=== PATIENT | male | born 1970 | race Caucasian/White ===

== ENCOUNTER → 2017-10-21 | Day surgery (SDC) | payer OTHER ==
[2017-10-11 11:11] VITALS: BMI 42.0
[~2017-10-21] VITALS: Ht 188 cm; Wt 146.4 kg
[~2017-10-21] MED LIST: ALOG1TAB5 PO; AMLO10TA3 PO; ASPI-435 PO; ATEN25TA PO; ATOR-24 PO; FLUT0.15 NAE; GABA-112 PO; GLIP-199 PO; LISI40TA PO; METF1000 PO; PRLSR20 PO; SODIUM CHLORIDE 0.9% 500ML 500 ML IV ONE; TRAM-10 PO
[2017-10-21 12:25] VITALS: TEMP 36.9
[2017-10-21 12:32] VITALS: Ht 188 cm; Wt 146.4 kg
--- NOTE | 2017-10-21 12:33 | Endo History and Physical ---
History & Physical Date of Service: Oct 21, 2017. Chief Complaint: Colonoscopy Referring Physician: Pieter Carrasquillo History of Present Illness History of tubulovillous adenoma 2013, here for colonoscopy. Past Medical History Diabetes, Arthritis, High Cholesterol, Heart Disease, Hypertension Past Surgical History Hx Cardiac Surgery: No Hx Internal Defibrillator: No Hx Pacemaker: No Hx Abdominal Surgery: No Hx of Implantable Prosthesis: No Hx Post-Op Nausea and Vomiting: No Hx Cancer Surgery: No Hx Thoracic Surgery: No Hx Orthopedic: Yes (RT FOOT/ANKLE SURGERY X2) Hx Urinary Tract Surgery: No Family History IBD Social History Smoking Status: Never Smoker Hx Substance Use: No Hx Alcohol Use: No Allergies Coded Allergies: No Known Allergies (Verified , 10/21/17) Current Medications Reported Home Medications Medications Dose Route/Sig Max Daily Dose Days Date Category Neurontin (Gabapentin) 100 Mg Cap 100 Mg PO TID PRN 10/11/17 Reported Ultram (Tramadol HCl) 50 Mg Tab 50 Mg PO Q4H PRN 10/11/17 Reported Flonase Allergy Relief (Fluticasone Propionate (Nasal)) 50 Mcg/Act Spr 2 Sprays JOAQUIM DAILY PRN 10/11/17 Reported Lipitor (Atorvastatin Calcium) 40 Mg Tab 40 Mg PO QPM 10/11/17 Reported Nesina (Alogliptin Benzoate) 25 Mg Tab 1 Tab PO QAM 10/11/17 Reported Tenormin (Atenolol) 25 Mg Tab 25 Mg PO QID 10/11/17 Reported Glucophage (Metformin Hcl) 1,000 Mg Tab 1,000 Mg PO BID 10/11/17 Reported Glipizide Er (Glipizide) 10 Mg Tab 1 Tab PO QAM 10/11/17 Reported Prilosec (Omeprazole) 20 Mg Capcr 20 Mg PO DAILY PRN 11/13/13 Reported Norvasc (Amlodipine Besylate) 10 Mg Tab 10 Mg PO QAM 11/13/13 Reported Aspirin 81 (Aspirin) 81 Mg Tab 81 Mg PO QAM 10/05/13 Reported Zestril (Lisinopril) 40 Mg Tab 40 Mg PO QPM 10/05/13 Reported Vital Signs Weight (Kilograms): 146.36 Height (Feet): 6 Height (Inches): 1.5 Physical Exam General Appearance: WD/WN, no apparent distress, + obese Respiratory/Chest: Auscultation: breath sounds normal, no wheezing Cardiovascular: Heart Auscultation: RRR, no murmurs Abdomen: Inspection & Palpation: soft, no tenderness, guarding & rebound Assessment and Plan Colonoscopy today.
--- NOTE | 2017-10-21 13:12 | Discharge Instructions ---
Endoscopy Patient Instructions Date / Procedure(s) Performed Oct 21, 2017. Colonoscopy Allergy Information Coded Allergies: No Known Allergies (Verified , 10/21/17) Discharge Date / Findings Oct 21, 2017. Diverticulosis Medication Instructions Stopped Medication(s): ASPIRIN 10/17/17 METFORMIN LAST 10/19/17 Restart Stopped Medication(s): Restart all medications today. Provider Instructions Activity Restrictions - No exercising or heavy lifting for 24 hours. - Do not drink alcohol the day of the procedure. - Do not drive a car or operate machinery until the day after the procedure. - Do not make any important decisions or sign important papers in 24 hours after the procedure. Following Day: - Return to full activity which may include returning to work/school. Diet Start your diet with liquids and light foods (jello, soup, juice, toast). Then eat your usual diet if not nauseated. Treatment For Common After Affects For mild abdominal pain, bloating, or excessive gas: - Rest - Eat lightly - Lie on right side Follow-Up Information Follow-up with ROSIE WILCOX as scheduled Anesthesia Information What You Should Know You have had a procedure that required some medicine to reduce anxiety and discomfort. This treatment is called moderate sedation. After receiving the treatment, you may be sleepy, but you will be able to breathe on your own. The effects of the treatment may last for several hours. Follow these instructions along with Activity/Diet recommendations noted above: * Do NOT do anything where dizziness or clumsiness would be dangerous. * Rest quietly at home today, then you can be up and about tomorrow. * Have a responsible person stay with you the rest of today. * You may have had an I.V. today. If so, you may take the dressing off later today. Recommendations Call your doctor if: * Trouble breathing * Continuous vomiting for more than 24 hours * Temperature above 101 degrees * Severe abdominal pain or bloating * Pain not relieved by pain medicine ordered * There is increased drainage or redness from any incision * A large amount of rectal bleeding greater than 2-3 tablespoons. (If you had a polyp/s removed or have hemorrhoids, a small amount of blood - from the rectum is to be expected.) * You have any unanswered questions or concerns. IN THE EVENT OF A SERIOUS EMERGENCY, GO TO THE NEAREST EMERGENCY ROOM Your discharge instructions were prepared by provider Marcos Rosales. Patient Instructions Signature Page Eleazar Peralta Patient (or Guardian) Signature/Date: I have read and understand the instructions given to me by my caregivers. Caregiver/RN/Doctor Signature/Date: The above-named patient and/or guardian has received patient instructions on this date. + Original Patient Signature Page (only) stays with chart. Please make copy for patient.
--- NOTE | 2017-10-21 13:21 | GI REPORT ---
Procedure Date: 10/21/2017 12:43 PM Procedure: Colonoscopy Indications: High risk colon cancer surveillance: Personal history of large rectal adenoma with villous component, 06/2014 Medicines: Monitored Anesthesia Care Complications: No immediate complications. Estimated blood loss: None. Estimated Blood Loss: Estimated blood loss: none. Procedure: Pre-Anesthesia Assessment: - Prior to the procedure, a History and Physical was performed, and patient medications, allergies and sensitivities were reviewed. The patient's tolerance of previous anesthesia was reviewed. - ASA Grade Assessment: III - A patient with severe systemic disease. After I obtained informed consent, the scope was passed under direct vision. Throughout the procedure, the patient's blood pressure, pulse, and oxygen saturations were monitored continuously. The scope was introduced through the anus and advanced to the terminal ileum, with identification of the appendiceal orifice and IC valve. The colonoscopy was performed with ease. The patient tolerated the procedure well. The quality of the bowel preparation was good. The bowel preparation used was split dose MIralax. Findings: Multiple medium-mouthed diverticula were found in the left colon. Impression: - Diverticulosis in the left colon. - No specimens collected. - The colon was otherwise normal to the terminal ileum with retroflexed views of the colon and terminal ileum. Recommendation: - Repeat colonoscopy in 3 years for screening purposes. - Discharge patient to home (with escort). Marcos Rosales M.D. Marcos Rosales MD 10/21/2017 1:21:15 PM This report has been signed electronically. Note Initiated On: 10/21/2017 12:43 PM I attest to the content of the Intraoperative Record and orders documented therein, exceptions below
--- NOTE | 2017-10-21 13:26 | Anesthesiology Progress Note ---
Anesthesia Post Op Note Date & Time Oct 21, 2017 at 13:26 Vital Signs Pain Intensity: 0 Vital Signs Past 12 Hours Date Time Temp Pulse Resp B/P (MAP) Pulse Ox O2 Delivery O2 Flow Rate FiO2 10/21/17 13:14 107 18 108/57 (74) 93 Room Air 10/21/17 12:35 114 142/91 (108) 10/21/17 12:27 114 10/21/17 12:25 36.9 122 20 179/99 (125) 95 Room Air Notes Mental Status: alert / awake / arousable, participated in evaluation Pt Amnestic to Procedure: Yes Nausea / Vomiting: adequately controlled Pain: adequately controlled Airway Patency, RR, SpO2: stable & adequate BP & HR: stable & adequate Hydration State: stable & adequate Anesthetic Complications: no major complications apparent
[2017-10-21 13:44] VITALS: BP 129/87; PULSE 97; O2SAT 96
== END | disposition home or self-care (01) ==
LOC: C.GI 11:59
PROVIDERS: ATTEND Internal Medicine Gastroenterology
DX: Z12.11 Encounter for screening for malignant neoplasm of colon (principal); Z86.010 Personal history of colon polyps; K57.30 Diverticulosis of large intestine without perforation or abscess without bleeding; I45.4 Nonspecific intraventricular block; I10 Essential (primary) hypertension; E78.00 Pure hypercholesterolemia, unspecified; K21.9 Gastro-esophageal reflux disease without esophagitis; M19.90 Unspecified osteoarthritis, unspecified site; E66.01 Morbid (severe) obesity due to excess calories; Z68.41 Body mass index [BMI] 40.0-44.9, adult; Z83.79 Family history of other diseases of the digestive system; Z79.82 Long term (current) use of aspirin; Z79.899 Other long term (current) drug therapy